=== PATIENT | male | born 1985 | race Hispanic/Latino ===

== ENCOUNTER 2017-07-26 14:52 | Emergency (ER) | payer SELFPAY | END 2017-07-26 15:18 | disposition home or self-care (01) | LOC: NAV ERS 14:52 | DX: F43.9 Reaction to severe stress, unspecified (principal); F17.210 Nicotine dependence, cigarettes, uncomplicated | CPT/HCPCS: 93005 ==

== ENCOUNTER 2017-08-18 21:19 | Emergency (ER) | payer SELFPAY ==
[2017-08-18 21:47] LABS: Bilirubin Negative (Negative); Blood, Urine Negative (Negative); Clarity Clear (Clear); Glucose, Urine (Dipstick) Negative (Negative); Leukocyte Negative (Negative); Nitrite Negative (Negative); Protein, Urine (Dipstick) Negative (Neg-Trace); Urobilinogen 0.2 mg/dL (0.2-1.0)
[2017-08-18 21:52] LABS: #Basophils 0.1 thou/uL (0.0-0.2); #Eosinphils 0.2 thou/uL (0.0-0.7); #Lymphocytes 2.1 thou/uL (1.20-3.40); #Monocytes 1.3 thou/uL (0.11-0.59); #Neutrophils 9.6 thou/uL (1.40-6.50); %Basophils 0.7 % (0.0-1.0); %Eosinophils 1.3 % (0.0-10.0); %Lymphocytes 15.8 % (21.0-51.0); %Monocytes 9.7 % (0.0-10.0); %Neutrophils 72.5 % (42.0-75.0); Hemoglobin 15.6 g/dL (14.0-18.0); Mean Corpuscular HGB CONC 33.1 g/dL (32.0-36.0); Mean Corpuscular Hemoglobin 31.9 pg (27.0-31.0); Mean Corpuscular Volume 96.5 fl (80.0-94.0); Mean Platelet Volume 8.3 fL (7.4-10.4); Platelet Count 251 thou/uL (130-400); RBC Distribution Width 11.6 % (11.5-14.5); Red Blood Cell (RBC) Count 4.89 mill/uL (4.70-6.10); White Blood Cell (WBC) Count 13.3 thou/uL (4.8-10.8)
[2017-08-18 22:00] LABS: Amphetamine Not Detected (NotDetected); Barbiturates Screen Not Detected (NotDetected); Benzodiazepine Screen Not Detected (NotDetected); Cocaine Metabolite Screen Detected (NotDetected); Medtox Control Line Valid? VALID (VALID); Methadone Not Detected (NotDetected); Methamphetamine Not Detected (NotDetected); Opiate Screen Not Detected (NotDetected); Oxycodone Screen Not Detected (NotDetected); Phencyclidine (PCP) Not Detected (NotDetected); THC/Cannabinoid Screen Detected (NotDetected); Tricyclic Screen Detected (NotDetected)
[2017-08-18 22:13] LABS: ALT (SGPT) 24 U/L (8-55); AST (SGOT) 22 U/L (5-34); Acetaminophen Less than 6.0 mcg/mL (10.0-30.0); Albumin 4.7 g/dL (3.5-5.0); Alcohol Less than 10 mg/dL (Less than 10); Alkaline Phosphatase 116 U/L (40-150); Anion Gap 14 mmol/L (10-20); BUN (Urea Nitrogen) 15 mg/dL (8.9-20.6); Bilirubin, Total 0.5 mg/dL (0.2-1.2); Calc. Creatinine Clearance 0 mL/min (70-130); Calcium 9.6 mg/dL (7.8-10.44); Carbon Dioxide 25 mmol/L (22-29); Chloride 104 mmol/L (98-107); Estimated GFR-MDRD Greater than 90; Globulin 2.8 g/dL (2.4-3.5); Glucose 96 mg/dL (70-105); Potassium 3.8 mmol/L (3.5-5.1); Protein, Total 7.5 g/dL (6.0-8.3); Salicylate Less than 8.0 mg/dL (15.0-30.0); Sodium 139 mmol/L (136-145)
[2017-08-19] MEDS ORDERED: Amitriptyline HCl 25 MG TAB PO SCH (21:00)
[2017-08-19] MEDS ORDERED: Nicotine 21 MG PATCH TOP SCH (21:00)
[2017-08-19] MEDS ORDERED: busPIRone HCl 15 MG TAB PO SCH ×2 (21:00)
[2017-08-20] MEDS ORDERED: busPIRone HCl 15 MG TAB PO SCH (09:00)
[2017-08-20] MEDS ORDERED: busPIRone HCl 5 MG TAB PO SCH (09:00)
[2017-08-20] MEDS ORDERED: busPIRone HCl 5 MG TAB ONE (19:16)
[2017-08-21] MEDS ORDERED: busPIRone HCl 5 MG TAB ONE (07:16)
[2017-08-21] MEDS ORDERED: FLUoxetine HCl 10 MG CAP ONE (07:27)
[2017-08-21] MEDS ORDERED: FLUoxetine HCl 20 MG CAP PO SCH (09:00)
[2017-08-21] MEDS ORDERED: Amitriptyline HCl 25 MG TAB ONE (20:41)
[2017-08-21] MEDS ORDERED: Nicotine 21 MG PATCH ONE (20:42)
[2017-08-21] MEDS ORDERED: Amitriptyline HCl 25 MG TAB PO SCH (21:00)
[2017-08-21] MEDS ORDERED: Nicotine 21 MG PATCH TOP SCH (21:00)
[2017-08-22] MEDS ORDERED: busPIRone HCl 5 MG TAB ONE (07:25)
[2017-08-22] MEDS ORDERED: FLUoxetine HCl 10 MG CAP ONE (07:55)
[2017-08-22] MEDS ORDERED: FLUoxetine HCl 20 MG CAP PO SCH (09:00)
== END 2017-08-22 13:22 | disposition home or self-care (01) ==
LOC: NAV ERS 21:19
DX: S50.812A Abrasion of left forearm, initial encounter (principal); F32.9 Major depressive disorder, single episode, unspecified; Z79.899 Other long term (current) drug therapy; X78.8XXA Intentional self-harm by other sharp object, initial encounter; F17.210 Nicotine dependence, cigarettes, uncomplicated
CPT/HCPCS: 80053; 80306; 80307; 81003; 84443; 85025; 93005